=== PATIENT | female | born 1940 | race Caucasian/White ===

== ENCOUNTER 2018-08-05 11:46 | Outpatient (REF) | payer MEDICARE, SELFPAY ==
[2018-08-05 20:41] LABS: Anion Gap 7.2 mmol/L (3-11); BUN 16 mg/dL (7-18); CO2 27.8 mmol/L (21.0-32.0); CREATININE 0.66 mg/dL (0.55-1.02); Calcium 8.6 mg/dL (8.5-10.1); Chloride 106 mmol/L (98-107); Cholesterol 238 mg/dL (50-200); Glucose 145 mg/dL (70-100); HDL Cholesterol 72 mg/dL (40-60); LDL CHOLESTEROL 154 mg/dL (<100); Potassium 4.2 mmol/L (3.5-5.1); Sodium 141 mmol/L (136-145); Triglyceride 120 mg/dL (30-150)
== END 2018-08-05 12:06 ==
LOC: NCHCN 11:46
PROVIDERS: PCP Nurse Practitioner; Visit Provider Nurse Practitioner Family
DX: E11.9 Type 2 diabetes mellitus without complications (principal); I10 Essential (primary) hypertension; E78.5 Hyperlipidemia, unspecified
CPT/HCPCS: 80048; 80061; 83721

== ENCOUNTER 2019-02-10 19:49 | Emergency (ER) | payer MEDICARE, SELFPAY ==
[2019-02-10] VITALS (15 sets, daily range): BP systolic 85–101; BP diastolic 60–83; PULSE 103–116; RESP 19–30; TEMP 36.2; O2SAT 83–93
[2019-02-10] MEDS: Tenecteplase 50 MG KIT 30 MG IVP (19:53)
--- NOTE | 2019-02-10 19:58 | DI.RAD_ITS ---
SYMPTOM/DIAGNOSIS: CHEST PAIN PORTABLE AP CHEST: There are no prior comparison exams. The exam is limited by multiple leads over the chest as well as poor inspiration. There are bilateral infiltrates, greater in the lung bases. The cardiac silhouette is mainly obscured. The findings could represent bilateral pneumonia versus pulmonary edema. The stomach is distended with gas. No free air is visible. IMPRESSION: Bilateral infiltrates, greater at the lung bases, could represent pulmonary edema versus bilateral pneumonia.
--- NOTE | 2019-02-10 20:14 | ED.GENADUL_ITS ---
Discharge Plan Discharge Details Chief Complaint: Chest Pain Reason For Visit: [facility] Primary Care Provider: Yamilet Adams ED Provider: Andrea Painting Home Meds and New Rx's Prescriptions: No Action atenolol 25 mg Tablet RF: 0 Medical Decision Making 78 yo tranported via EMS for new cp. STEMI in field confirmed by EKG on arrival. Initially mild hypotension responded to boluses of IVF. SaO2 improved on NRB. Other thna non-interaction, TATE and non focal exam. Bedside ultrasound neg for pericardial effusion or dilated aortic root and pos for inf/septal WMA on parasternal short. Treated emergently w TNK, heparin, Plavix, and ASA. Gradually more alert and denies SSCP, dyspnea. However, on arrival of the helicopter crew for transport to [facility], the patient became more dyspneic with increased work of breathing and decreasing SaO2. Intubated by the flight crew without complication prior to transport to [facility] for definitive management. Medical Records Medical records reviewed: Yes I reviewed the patient's medical records. Imaging Data Radiologic Study: Imaging: X-Ray (portable) My impression: bilateral interstitial syndrome. Interpreted independently and contemporaniously by myself. Lab Data Lab results reviewed: Yes I reviewed the patient's lab results. Lab results narrative: Laboratory Results - last 24 hr 02/10/19 02/10/19 19:53 19:53 WBC 16.26 H RBC 4.79 Hgb 12.9 Hct 39.9 MCV 83.3 MCH 26.9 L MCHC 32.3 RDW 13.9 Plt Count 376 MPV 10.8 Immature Gran % 0.4 Neutrophils % 83.6 Lymphocytes % 6.8 Monocytes % 9.0 Eosinophils % 0.1 Basophils % 0.1 Absolute Neutrophils 13.59 H Absolute Lymphocytes 1.11 L Absolute Monocytes 1.46 H Absolute Eosinophils 0.02 Absolute Basophils 0.02 Sodium 138 Potassium 4.1 Chloride 101 Carbon Dioxide 19.7 L Anion Gap 17.3 H BUN 30 H Creatinine 1.27 H Estimated GFR/1.73 m2 40.49 Glucose 347 H Calcium 8.9 Magnesium 2.2 Total Bilirubin 1.1 H AST 32 ALT 28 Alkaline Phosphatase 82 Troponin I 7.25 H* Total Protein 6.9 Albumin 2.7 L ECG Data Attestation: I personally reviewed and interpreted this ECG (s) as follows: Prior ECG tracings: not available for review Interpretation: SR ~ 110, ST elev 3, F w recip ST depressoins 1, AVL, V2-3 HPI 78 yo w a hx of htn on atenolol only. Transpoerted via EMS for progressive chest pain since ~ 1600. According to global compensation manager, pt had developed cp localized to her left anterior chest ultimately promptin her to call EMS. On initial EMS evaluation, Ms. Quintero had low SaO2, a systolic bp ~ 85, and an EKG diagnostic for an inferior STEMI. En route, she became non interactive and is non verbal on arrival. According to her , she has no known hx CAD and developed mild chest pressure ~ 1600 localized to her L ant chest which gradually worsened since. She recently had constipation which resolved after drinking apple juice this AM. She also has had poor PO intake recently. Otherwise, her denies recent exertional dyspnea, cp, diaphoresis, or near syncope. She has had no abd pain, melena/hemaotchezia, urinary sx, or atypical leg pain or swelling. General Date/Time Provider Initiated Documentation: 02/10/19 20:02 . Related Data Home Medications Medication Instructions Recorded Confirmed atenolol 02/10/19 Allergies Allergy/AdvReac Type Severity Reaction Status Date / Time No Known Allergies Allergy Unverified 02/10/19 20:29 General Stated Complaint: Chest Pain JUSTUS: 1 Review of Systems Review of Systems Unobtainable due to mental status PFSH Medical History Hypertension (Chronic) Social History Smoking/Tobacco Use Status: Never Alcohol Intake: never Substance use type: does not use Additional Social history: uanble to assess Exam Narrative Exam Narrative: Nursing note and vital signs have been reviewed and noted. GENERAL: TATE, attempting to remove NRB, initially non-responsive to verbal/gental physical stim HEENT: atraumatic/normocephalic, PERRLA, EOMI, conjunctiva clear, external ears/canals normal, nasal mucosa normal NECK: supple, full range of motion CARDIOVASCULAR: nl pulses, no edema PULMONARY: nl effort, no audible wheezing or stridor ABDOMEN: non-distended EXTREMITY: normal muscle tone, all joints with FROM, no deformity NUERO: normal mentation, moving all extremities, normal stance and gait, PSYCH: non-interactive SKIN: no new rashes or lesions Course Vital Signs Temperature 97.2 F L 02/10/19 19:59 Pulse 106 H 02/10/19 19:59 Respiratory Rate 22 02/10/19 19:59 Blood Pressure 92/76 L 02/10/19 19:59 Pulse Oximetry 93 L 02/10/19 19:59 Temperature 97.2 F L 02/10/19 19:59 Temperature Source Skin 02/10/19 19:59 Pulse 106 H 02/10/19 19:59 Respiratory Rate 22 02/10/19 19:59 Blood Pressure 92/76 L 02/10/19 19:59 Blood Pressure Position Sitting 02/10/19 19:59 Pulse Oximetry 93 L 02/10/19 19:59 Oxygen Delivery Method Non-Rebreather 02/10/19 19:59 Oxygen Flow Rate 15 02/10/19 19:59 Critical Care Time Critical Care Time: Yes Total Critical Care Time: 60 Attestation: Present for acute critical care management.
[2019-02-10 20:17] LABS: Abs Immature Grans 0.07 k/cumm (0.0-0.09); Absolute Lymphocyte Count 1.11 k/cumm (1.2-3.4); Absolute Monocyte Count 1.46 k/cumm (0.11-0.7); Basophils % 0.1; Eosinophils % 0.1; HCT 39.9 % (36.0-46.0); HGB 12.9 g/dL (12.0-15.5); Immature Grans % 0.4; Lymphocytes % 6.8; Mean Corp. HGB Concentration 32.3 g/dL (32.0-36.0); Mean Corpuscular Hemoglobin 26.9 pg (27.0-33.0); Mean Corpuscular Volume 83.3 fL (80-95); Mean Platelet Volume 10.8 fL (8.0-11.0); Neutrophils % 83.6; Platelet Count 376 x1000/uL (130-400); RBC 4.79 m/cumm (4.00-5.20); RBC Distribution Width 13.9 % (11.7-14.6); White Blood Cell Count 16.26 k/cumm (4.4-10.8)
[2019-02-10 20:18] LABS: Absolute Basophil Count 0.02 k/cumm (0.0-0.2); Absolute Eosinophil Count 0.02 k/cumm (0.0-0.7); Absolute Neutrophil Count 13.59 k/cumm (1.2-6.7)
[2019-02-10] MEDS: Clopidogrel 75 MG TAB PO (20:18)
[2019-02-10] MEDS: Aspirin 325 MG TAB PO (20:18)
[2019-02-10 20:30] LABS: ALT 28 U/L (12-78); AST 32 U/L (15-37); Albumin 2.7 g/dL (3.4-5.0); Alkaline Phosphatase 82 U/L (46-116); Anion Gap 17.3 mmol/L (3-11); BUN 30 mg/dL (7-18); Bilirubin, Total 1.1 mg/dL (0.2-1.0); CO2 19.7 mmol/L (21.0-32.0); CREATININE 1.27 mg/dL (0.55-1.02); Calcium 8.9 mg/dL (8.5-10.1); Chloride 101 mmol/L (98-107); Estimated GFR 40.49 (mL/min/1.73m2); Glucose 347 mg/dL (70-100); Magnesium 2.2 mg/dL (1.8-2.4); Potassium 4.1 mmol/L (3.5-5.1); Sodium 138 mmol/L (136-145); Total Protein 6.9 g/dL (6.4-8.2)
[2019-02-10 20:33] LABS: Troponin I 7.25 ng/mL (0.00-0.06)
--- NOTE | 2019-02-10 20:52 | DI.VRAD_ITS ---
Addendum created by Taylor Villalpando MD on 02/10/2019 8:57:39 PM EDT THIS REPORT CONTAINS FINDINGS THAT MAY BE CRITICAL TO PATIENT CARE. The findings were verbally communicated via telephone conference with JUSTIN GLASGOW at 8:57 PM EDT on 02/10/2019. The findings were acknowledged and understood. Initial report created on 02/10/2019 8:51:50 PM EDT EXAM: XR Chest, 1 View EXAM DATE/TIME: 02/10/2019 7:59 PM CLINICAL HISTORY: 78 years old, female; Signs and symptoms; Other: Chest pain TECHNIQUE: Imaging protocol: XR of the chest, 1 view. COMPARISON: No relevant prior studies available. FINDINGS: Lungs: There are right greater than left heterogeneous bibasilar opacities. Elsewhere, there are mild interstitial markings. Pleural space: There is a small lucency at the right lung apex favored to be related to a skinfold. If there is concern for pneumothorax in this region, repeat radiograph suggested. Heart/Mediastinum: The cardiomediastinal contours are not well assessed secondary to overlying opacities and medical equipment. External pacing devices are seen. Upper abdomen: There is gaseous dilation of the stomach. Bones/joints: Skeletal degenerative changes. IMPRESSION: 1. There are right greater than left heterogeneous bibasilar opacities that could represent pneumonia or aspiration. Elsewhere, there are mild interstitial markings which may be related to edema. 2.There is a small lucency at the right lung apex favored to be related to a skinfold. If there is concern for pneumothorax in this region, repeat radiograph suggested. 3. Cardiomediastinal contours are not well assessed secondary to overlying opacities and medical equipment. 4. Gaseous dilation of the stomach. Other findings as above. Dictated and Authenticated by: Taylor Villalpando MD. Ordering:P.TEMP Provider Temporary MD
== END 2019-02-10 21:28 ==
PROVIDERS: Emergency Provider Emergency Medicine; PCP Nurse Practitioner
DX: I21.19 ST elevation (STEMI) myocardial infarction involving other coronary artery of inferior wall (principal); I10 Essential (primary) hypertension
CPT/HCPCS: 36415; 80053; 93005; 96365; 99285; 71045; 83735; 84484; 85025; 93010; J3101